=== PATIENT | female | born 1965 | race Caucasian/White ===

== ENCOUNTER 2018-11-02 09:46 | Day surgery (SDC) | payer OTHER ==
[~2018-11-02] VITALS: Ht 157.5 cm; Wt 84.8 kg
[2018-11-02] MEDS ORDERED: LIDOCAINE 2% 100 MG/5 ML UJET TP ONE (10:45)
[2018-11-02] MEDS: fentaNYL 0.05 MG/ML VIAL ONE ×2 (11:47→11:59)
== END 2018-11-02 12:40 | disposition home or self-care (01) ==
LOC: MTU 09:46 → MDS 09:46
PROVIDERS: ATTEND Internal Medicine Gastroenterology
DX: Z12.11 Encounter for screening for malignant neoplasm of colon (principal); K57.30 Diverticulosis of large intestine without perforation or abscess without bleeding; I10 Essential (primary) hypertension; E66.9 Obesity, unspecified; J45.909 Unspecified asthma, uncomplicated; G43.909 Migraine, unspecified, not intractable, without status migrainosus; Z68.34 Body mass index [BMI] 34.0-34.9, adult; Z98.890 Other specified postprocedural states; Z79.82 Long term (current) use of aspirin; Z79.899 Other long term (current) drug therapy
CPT/HCPCS: 45378; J3010